=== PATIENT | female | born 1960 | race Caucasian/White ===

== ENCOUNTER 2017-05-09 09:00 | Day surgery (SDC) | payer BC, OTHER ==
[~2017-05-09] VITALS: Ht 160 cm; Wt 71.9 kg
[~2017-05-09 09:00] MED LIST: SODIUM CHLORIDE 0.9% 1000ML 1,000 ML IV ONE
[2017-05-09 10:47] VITALS: BP 113/55
[2017-05-09] MEDS ORDERED: MEPERIDINE-PF 50 MG/ML SYG ONE (10:58)
[2017-05-09] MEDS ORDERED: MIDAZOLAM HCL 1 MG/ML 2ML VIAL ONE (10:58)
[2017-05-09] MEDS ORDERED: TYLENOL ARTHRITIS PO (10:59)
[2017-05-09] MEDS ORDERED: META800T72 PO (10:59)
[2017-05-09] MEDS ORDERED: SIMV10TA6 PO (10:59)
[2017-05-09] MEDS ORDERED: ESTR1PAT46 TD (10:59)
[2017-05-09 11:36] VITALS: BP 104/54
== END 2017-05-09 12:18 ==
LOC: DAH 09:00
PROVIDERS: ATTEND Internal Medicine Gastroenterology
DX: Z12.11 Encounter for screening for malignant neoplasm of colon (principal); E78.5 Hyperlipidemia, unspecified; Z79.899 Other long term (current) drug therapy; Z98.890 Other specified postprocedural states; Z88.5 Allergy status to narcotic agent; Z90.710 Acquired absence of both cervix and uterus; Z83.71 Family history of colonic polyps
CPT/HCPCS: 45378; A4606; J2175; J2250; J7030

== ENCOUNTER → 2019-01-06 | Outpatient (CLI) | payer OTHER ==
[~2019-01-06] MED LIST changes: +ESTR1PAT46 TD; +META800T72 PO; +SIMV10TA6 PO; -SODIUM CHLORIDE 0.9% 1000ML 1,000 ML IV ONE; +TYLENOL ARTHRITIS PO
== END | disposition home or self-care (01) ==
LOC: RAH 12:38
PROVIDERS: ATTEND Internal Medicine
DX: Z13.6 Encounter for screening for cardiovascular disorders (principal)
CPT/HCPCS: 75571